=== PATIENT | male | born 1985 | race Two or more races ===

== ENCOUNTER 2016-07-30 11:21 | Emergency (ER) | payer SELFPAY ==
[2016-07-30] MEDS ORDERED: NO HOME MEDS (11:42)
[2016-07-30 12:45] LABS: BASO % 0.2 % (0-2); EOS % 0.5 % (0-7); EOSINOPHIL ABSOLUTE COUNT 0.1 tho/cmm (0.0-0.7); HCT-HEMATOCRIT 52.3 % (36.0-53.5); HGB-HEMOGLOBIN 17.9 gm/dl (13.5-17.0); IMMATURE GRANULOCYTES ABSOLUTE 0.02 tho/cmm (0-0.03); IMMATURE GRANULOCYTES PERCENT 0.2 % (0-0.3); LYMPH % 31.3 % (20-45); LYMPH ABSOLUTE COUNT 2.9 tho/cmm (0.8-4.5); MCH (MEAN CORPUSCULAR HGB) 30.8 pg (28.0-32.0); MCHC MEAN CORPUSCULAR HGB CONC 34.2 % (32.0-36.0); MEAN PLATELET VOLUME 10.1 cmc (9.4-12.4); MONO % 12.8 % (0-12); MONOCYTE ABSOLUTE COUNT 1.2 tho/cmm (0.0-1.2); NEUTROPHIL ABSOLUTE COUNT 5.1 tho/cmm (1.6-8.0); NEUTROPHIL-AUTOMATED 5.1 tho/cmm (1.6-8.0); PLATELET COUNT 323 tho/cmm (150-450); RED BLOOD COUNT 5.81 mil/cmm (4.40-5.70); RED CELL DISTRIBUTION WIDTH 14.8 % (12.4-16.4); WHITE BLOOD COUNT 9.3 tho/cmm (4.0-10.0)
[2016-07-30 12:51] LABS: URINE BILIRUBIN SMALL (NEG); URINE BLOOD SMALL (NEG); URINE GLUCOSE (UA) NEGATIVE (NEG); URINE KETONE LARGE (NEG); URINE LEUKOCYTE ESTERASE POSITIVE (NEG); URINE NITRITE NEGATIVE (NEG); URINE PROTEIN LARGE (NEG); URINE SPECIFIC GRAVITY 1.025 (1.003-1.030)
[2016-07-30 12:53] LABS: URINE APPEARANCE HAZY; URINE COLOR DARK YELLOW
[2016-07-30 12:58] LABS: ALB/GLOB RATIO 0.9 (0.8-2.0); ALBUMIN 4.5 g/dl (3.5-5.0); ALKALINE PHOSPHATASE 73 U/L (33-138); ALT/SGPT 17 U/L (12-78); BILIRUBIN,TOTAL 0.8 mg/dl (0.0-1.5); BLOOD UREA NITROGEN 15 mg/dl (6-24); CALCIUM 9.2 mg/dl (8.5-10.5); CARBON DIOXIDE-VENOUS 24 mmol/L (22-32); CHLORIDE 101 mmol/l (96-110); CREATININE 1.26 mg/dl (0.60-1.30); GLUCOSE 85 mg/dL (70-110); SODIUM 136 mmol/L (135-145); eGFR VALUE FOR BLACK 88 mL/Min
[2016-07-30 13:00] LABS: ANION GAP 15 mmol/L (0-20); AST/SGOT 30 U/L (10-40); POTASSIUM 3.9 mmol/L (3.7-5.1)
[2016-07-30 13:12] LABS: URINE MUCUS 4+
[2016-07-30 13:13] LABS: URINE BACTERIA 1+; URINE EPITHELIAL CELLS 0-1 /[HPF] (0-10); URINE RBC 0-1 /[HPF] (0-5)
[2016-07-30] MEDS ORDERED: HYDROCHLOROTHIA25 M1 PO (14:52)
== END 2016-07-30 15:10 ==
LOC: EDMED 11:21
PROVIDERS: Emergency Medicine
DX: I10 Essential (primary) hypertension (principal); E86.0 Dehydration; R11.10 Vomiting, unspecified
CPT/HCPCS: J7030